=== PATIENT | male | born 1975 | race Caucasian/White ===

== ENCOUNTER 2022-06-07 21:19 | Emergency (ER) | payer OTHER, SELFPAY ==
[2022-06-07 22:42] VITALS: BP 148/82; PULSE 66; RESP 18; TEMP 36.7; O2SAT 95; BMI 28.6
--- NOTE | 2022-06-07 23:45 | ED.SKABFB ---
HPI - Skin/Abscess/Foreign Bdy General Chief complaint: Ear Problems Stated complaint: bug in ear Time Seen by Provider: 06/07/22 23:44 Source: patient, RN notes reviewed and old records reviewed Mode of arrival: ambulatory Limitations: no limitations History of Present Illness HPI narrative: This a 47-year-old male who presents to the emergency department with complaints of bug in his left ear since today. Patient reports that he was sitting by his full when suddenly he felt a Beetle fly into his left ear. He states that he jumped into his pool shortly after the bug flew into his ear to stop the bug from moving in his ear canal. He no longer feels the bug moving in his ear, but still feels the bug still present. He denies any current pain. He reports some diminished hearing in his left ear. He denies any fevers or chills. Denies any other complaints or concerns at this time. MD complaint: foreign body Onset (ago): hour(s) Tetanus up to date: unsure Location: head (Left ear) Severity: moderate Severity scale (1-10): 3 Quality: aching Pain Consistency: constant Relieving factors: none Exacerbating factors: none Context: none Associated symptoms: denies other symptoms Related Data Previous Rx's Medication Instructions Recorded amoxicillin 875 mg-potassium 1 tab PO BID 7 days #14 tabs 06/07/22 clavulanate 125 mg tablet Allergies Allergy/AdvReac Type Severity Reaction Status Date / Time bee pollen [bee stings] Allergy Intermediate Hives Verified 06/07/22 22:42 Review of Systems Review of Systems: Constitutional :No Fever, No Chills ENT/Mouth : + decreased hearing, + foreign body left ear, No Ear Pain, No Nasal Congestion. Eyes: No Eye Pain, No Swelling, No Redness, No Foreign Body, No Discharge, No Vision Changes Cardiovascular : No Chest Pain, No SOB Respiratory : No Cough, No Sputum, No Wheezing, No Smoke Exposure, No Dyspnea Gastrointestinal : No Nausea, No Vomiting, No Diarrhea, No Constipation, No abdominal Pain Genitourinary : no irregular bleeding, No Dysuria, No Urinary Frequency, No Hematuria, No Urinary Incontinence, No Urgency, No Flank Pain, No Urinary Flow Changes, No Hesitancy Musculoskeletal : No joint pain, No Myalgias, No Joint Swelling Skin : No Skin Lesions, No rash Neuro : No Weakness, No Numbness, No Paresthesias, No Dizziness, No Headache Psych : No Anxiety/Panic, No Depression, No SI/HI/AH/VH Heme/Lymph: No Bruising, No Bleeding Endocrine : No Polyuria, No Polydipsia, No Temperature Intolerance Yes all other systems are reviewed and are negative [facility] Past Medical History Attestation statement: The following information was validated with the patient. Source: old records reviewed, obtained from family and nursing notes reviewed Social History Social History Advance Directives: No Physical Exam Vital Signs: Vital Signs: Last Vital Signs Temp 98.0 F 06/07/22 22:42 Pulse 66 06/07/22 22:42 Resp 18 06/07/22 22:42 BP 148/82 H 06/07/22 22:42 Pulse Ox 95 06/07/22 22:42 O2 Del Method 06/07/22 22:42 BMI result Body Mass Index 28.6 Vital signs have been reviewed as normal and appeared to be correct. Blood pressure 148/82. Heart rate normal. Respiration rate normal. Temperature normal. Oxygen saturation normal. Appearance: Alert. Oriented X3. No acute distress. Head: Normal external exam. Normocephalic. Atraumatic. Eyes: PERRLA. EOMI. Conjunctiva and sclera normal. Eyelids normal. ENT: Pharynx normal. Uvula midline. Moist mucous membranes. Left ear canal with small black beetle, obstructing TM. Post removal of insect, the ear canal is mildly erythematous and edematous. Right ear canal is nonerythematous nonedematous, right TM is nonbulging, nonerythematous. Neck: Normal inspection. Neck supple. FROM. CVS: Normal heart rate and rhythm. Respiratory: No respiratory distress. Painless inspiration. Skin: Skin warm and dry. Normal skin color. Normal skin turgor. No rashes/lesions/lacerations noted. Extremities: No lower extremity edema. Extremities exhibit normal range of motion. Extremities nontender. Neuro: Oriented X 3. No motor deficit. No sensory deficit. Reflexes normal. Normal steady gait. No focal neuro deficits noted. Vascular: + radial pulses/+ 2 distal pedal pulses/+2 dorsalis pedis b/l. Normal cap refill. Course Course Course Narrative: This is a 47-year-old male presenting today with an insect in his left ear. Insect was successfully removed out of left ear canal using irrigation. Status post irrigation tympanic membrane is intact not perforated. See procedure note. The left ear canal is mildly erythematous and edematous will treat with Augmentin x7 days. Advised to return or follow-up with any new or worsening symptoms. Patient understands and agrees with plan. MDM - Skin/Abscess/Foreign Bdy Medical Records Attestation: I reviewed the patient's medical records. Procedures FB Removal Ear Location: ear canal (L) Foreign Body Suspected: insect TM intact pre-procedure: yes Foreign Body Removed: yes Foreign Body Removal Technique: irrigation Tympanic Membrane Intact Post Procedure: Yes Patient Tolerated Procedure: well and no complications Complications: none Additional Comments: TM was visualized post irrigation, TM is intact, however the left ear canal is mildly erythematous and edematous. Patient tolerated procedure well without any complications or concerns. Discharge Plan Discharge Clinical Impression: Acute foreign body of left ear Patient Disposition: Home, Self-Care Instructions: Ear Foreign Body (ED) Prescriptions: New amoxicillin-pot clavulanate 875-125 mg tablet 1 tab PO BID 7 Days Qty: 14 0RF Referrals: Neto Arriaga MD [Primary Care Provider] - 2 days Interventions: ED Discharge Assessment Last Done: 06/07/22 23:57 Discharge Date/Time: 06/07/22 23:59 Print Language: Maltese
== END 2022-06-07 23:59 | disposition home or self-care (01) ==
PROVIDERS: Emergency Provider Internal Medicine; PCP Pediatrics
DX: T16.2XXA Foreign body in left ear, initial encounter (principal); X58.XXXA Exposure to other specified factors, initial encounter; Y93.9 Activity, unspecified; Y92.9 Unspecified place or not applicable; Y99.9 Unspecified external cause status
CPT/HCPCS: 69200; 99282; 99284